=== PATIENT | male | born 1955 | race African-American/Black ===

== ENCOUNTER 2018-10-23 09:29 | Outpatient (CLI) | payer MEDICARE, MEDICAID ==
[2018-10-23] MEDS ORDERED: Gadobenate Dimeglumine 529 MG/1 ML (20ML VIAL) ONE (09:48)
[2018-10-23 10:01] LABS: Estimated GFR-MDRD - POC Greater than 90
--- NOTE | 2018-10-23 17:32 | MRI ---
MRI OF PELVIS (PROSTATE) WITH AND WITHOUT IV CONTRAST AND EVALUATION ON INDEPENDENT 3D WORKSTATION: 10/23/18 HISTORY: Prostate cancer, PSA 6.72. FINDINGS: The prostate gland measures 5 x 3.5 x 4 cm with a volume of 37 mL. There is a 3-4 mm focus of restricted diffusion with hypointensity on ADC map in the peripheral zone of the right mid prostate gland. No lentiform area of abnormally decreased T2 signal is seen in the transitional zone. There is quest ionable involvement of the right neurovascular bundle. No pelvic lymphadenopathy seen. The seminal ve sicles are intact. There is a right sided inguinal hernia containing loop of bowel. No abnormal areas of signal replacement are seen on the T1 weighted sequences to suggest osseous meta static disease. IMPRESSION: PI-RADS 4: High (clinically significant cancer is likely). POS: SARAH
== END 2018-10-23 09:30 | disposition home or self-care (01) ==
LOC: TBSIIMAG 09:29
PROVIDERS: ATTEND Urology
DX: C61 Malignant neoplasm of prostate (principal)
CPT/HCPCS: 72197; 82565; A9577